=== PATIENT | female | born 1990 | race Hispanic/Latino ===

== ENCOUNTER 2023-03-04 15:35 | Emergency (ER) | payer OTHER ==
[~2023-03-04] VITALS: Ht 157.5 cm; Wt 81.6 kg
[2023-03-04 16:56] LABS: HIV 1&2 ANTIBODY Non-Reactive (Negative); HIV-1 p24 Antigen Non-Reactive (Negative)
[2023-03-04 17:46] VITALS: BP 122/78; PULSE 78; RESP 18; O2SAT 98
[2023-03-05 15:30] LABS: HEPATITIS B CORE AB TOTAL Non-Reactive (Nonreactive); HEPATITIS B SURFACE ANTIBODY Negative (Reactive); HEPATITIS C ANTIBODY Non-Reactive (Nonreactive)
== END 2023-03-04 17:48 | disposition home or self-care (01) ==
LOC: EDH 15:35
DX: S61.431A Puncture wound without foreign body of right hand, initial encounter (principal); R06.02 Shortness of breath; Z88.8 Allergy status to other drugs, medicaments and biological substances; X58.XXXA Exposure to other specified factors, initial encounter; Y93.89 Activity, other specified; Y92.89 Other specified places as the place of occurrence of the external cause; Y99.8 Other external cause status
CPT/HCPCS: 36415; 86701; 86704; 86706; 86803; 87390

== ENCOUNTER 2023-06-30 07:03 | Emergency (ER) | payer OTHER ==
[2023-06-30 08:47] VITALS: BP 132/71; PULSE 77; RESP 18; O2SAT 98
== END 2023-06-30 08:42 | disposition home or self-care (01) ==
LOC: EDH 07:03
DX: Z32.02 Encounter for pregnancy test, result negative (principal)
CPT/HCPCS: 36415; 84703